=== PATIENT | male | born 1995 | race Caucasian/White ===

== ENCOUNTER 2020-07-16 17:54 | Emergency (ER) | payer OTHER ==
[~2020-07-16] VITALS: Ht 172.7 cm; Wt 85.4 kg
--- NOTE | 2020-07-16 18:00 | NUR ---
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
[2020-07-16 18:41] LABS: BASOPHILS % (AUTO) 1 % (0-1); EOSINOPHILS % (AUTO) 1 % (1-7); LYMPHOCYTES % (AUTO) 23 % (22-44); MEAN CORPUSCULAR HEMOGLOBIN 31.4 pg (27.5-34.5); MEAN CORPUSCULAR HGB CONC 34.5 g/dL (33.2-36.2); MEAN PLATELET VOLUME 8.4 fL (7.4-10.4); MONOCYTES % (AUTO) 8 % (2-9); NEUTROPHILS % (AUTO) 68 % (42-75); PLATELET COUNT 226 x10^3/uL (130-400); RED BLOOD COUNT 5.15 x10^6/uL (4.38-5.82); RED CELL DISTRIBUTION WIDTH 12.6 % (9.4-14.8)
[2020-07-16 18:43] LABS: MD NO
[2020-07-16 18:51] LABS: ALBUMIN 4.3 g/dL (3.4-5.0); ANION GAP 10 mmol/L (5-15); CALCIUM 9.3 mg/dL (8.5-10.1); CHLORIDE 112 mmol/L (98-107); CREATININE 1.11 mg/dL (0.7-1.3)
[2020-07-16 18:55] LABS: TROPONIN I < 0.015 ng/mL (0.000-0.045)
[2020-07-16] MEDS ORDERED: CARBAMIDE PEROXIDE EAR DROPS 6.5%, 15ML LEFT EAR ONE (19:00)
[2020-07-16] MEDS ORDERED: CARBAMIDE PEROXIDE EAR DROPS 6.5%, 15ML ONE (19:04)
--- NOTE | 2020-07-16 19:13 | NUR ---
patient resting in bed in [facility]. call [place] in reach. visitor at bedside. 10 drops of ordered ear drop applied to L inner ear. following orders, will keep in place for few minutes and distill after with room temp sterile water
--- NOTE | 2020-07-16 19:50 | NUR ---
ear irrigated with warm tap water and peroxide again. ear wax dislodged and was able to be extracted with irrigation from L ear canal. patient states relief.
--- NOTE | 2020-07-16 20:35 | NUR ---
discharge instructions reviewed with patient and viositor at bedside. no further questions. prescription handed directly to patient. no IV placed during this visit. all personal belongings with patient on dc. VS remain stable on DC. steady gait to lobby.
[2020-07-16 20:36] VITALS: BP 110/65
== END 2020-07-16 20:38 | disposition home or self-care (01) ==
LOC: ED 18:43
DX: R51.9 Headache, unspecified (principal); R11.2 Nausea with vomiting, unspecified; H61.22 Impacted cerumen, left ear; R42 Dizziness and giddiness; R07.89 Other chest pain
CPT/HCPCS: 36415; 69209; 71045; 80048; 82040; 84484; 85025; 93005; 99285